=== PATIENT | female | born 1945 | race Caucasian/White ===

== ENCOUNTER 2024-10-06 13:40 | Emergency (ER) | payer MEDICARE, OTHER, SELFPAY ==
[2024-10-06 13:42] VITALS: BP 148/88; PULSE 76; RESP 16; TEMP 36.2; O2SAT 99; BMI 19.9
[2024-10-06 13:49] VITALS: O2SAT 98
== END 2024-10-06 15:24 | disposition home or self-care (01) ==
PROVIDERS: Emergency Provider Surgery; Visit Provider Surgery
DX: S32.019A Unspecified fracture of first lumbar vertebra, initial encounter for closed fracture (principal); S32.029A Unspecified fracture of second lumbar vertebra, initial encounter for closed fracture; W10.9XXA Fall (on) (from) unspecified stairs and steps, initial encounter
CPT/HCPCS: 72131; 99282